=== PATIENT | female | born 1985 | race Caucasian/White ===

== ENCOUNTER 2017-02-13 17:40 | Emergency (ER) | payer SELFPAY ==
[2017-02-13] MEDS ORDERED: traMADol HCl 50 MG TAB ONE (17:55)
--- NOTE | 2017-02-13 19:59 | RAD ---
Three views of the right foot: Date: 02-13-17 History: Jumped off bunk bed and landed on the right foot wrong. Right foot injury. FINDINGS: There is a mildly oblique fracture involving the proximal shaft of the fifth metatarsal with approxi mately 1-2 mm of separation of the fracture fragments. There is no significant angulation or displac ement of the fracture fragments. No additional fracture seen. There is no dislocation. The ankle mor tise is congruent. There is subcutaneous soft tissue swelling at the lateral aspect of the foot. IMPRESSION: Minimally fracture involving the proximal shaft of the right fifth metatarsal with adjacen t subcutaneous soft tissue swelling. POS: [facility]
== END 2017-02-13 18:30 | disposition home or self-care (01) ==
LOC: NAV ERS 17:40
DX: S92.351A Displaced fracture of fifth metatarsal bone, right foot, initial encounter for closed fracture (principal); F17.210 Nicotine dependence, cigarettes, uncomplicated; W06.XXXA Fall from bed, initial encounter